=== PATIENT | female | born 2000 | race Caucasian/White ===

== ENCOUNTER 2018-03-18 17:29 | Emergency (ER) | payer OTHER ==
--- NOTE | 2018-03-18 18:05 | EDPHY ---
H & P Stated Complaint: cramping/iud Time Seen by Provider: 03/18/18 17:47 HPI/ROS: CHIEF COMPLAINT: Severe pelvic cramping HISTORY OF PRESENT ILLNESS: 17-year-old female presents with severe pelvic cramping. IUD placed 2 years ago, usually does not have menstrual periods. However 1 week ago she developed breast tenderness, associated with pelvic cramping and vaginal bleeding. Vaginal bleeding has stopped, but continues to have severe pelvic cramping. Associated with nausea. REVIEW OF SYSTEMS: complete 10 point ROS reviewed and is negative except for the noted elements in the HPI - Personal History LMP (Females 10-55): IUD In Place - Medical/Surgical History Hx Asthma: No Hx Chronic Respiratory Disease: No Hx Diabetes: No Hx Cardiac Disease: No Hx Renal Disease: No Hx Cirrhosis: No Hx Alcoholism: No Hx HIV/AIDS: No Hx Splenectomy or Spleen Trauma: No Other PMH: denies - Social History Smoking Status: Never smoked - Physical Exam Exam: General Appearance: Alert, pleasant Eyes: Pupils equal and round, no conjunctival pallor ENT, Mouth: Mucous membranes moist Neck: Normal inspection Respiratory: Lungs are clear to auscultation Cardiovascular: Regular rate and rhythm Gastrointestinal: Abdomen is soft, mild suprapubic tenderness Neurological: A&O, nonfocal, normal gait Skin: Warm and dry, no rash Extremities: Normal inspection Psychiatric: Mood and affect normal Constitutional: Initial Vital Signs Temperature (C) 36.8 C 03/18/18 17:32 Heart Rate 73 03/18/18 17:32 Respiratory Rate 18 03/18/18 17:32 Blood Pressure 111/88 H 03/18/18 17:32 O2 Sat (%) 100 03/18/18 17:32 O2 Delivery Mode Room Air Allergies/Adverse Reactions: doxycycline Allergy (Verified 03/18/18 17:32) Home Medications: Medication Instructions Recorded Spironolactone 03/18/18 Medical Decision Making - Diagnostics Imaging Results: Pelvic/Renal Ultrasound 03/18/18 18:03 Impression: Probable partially ruptured right ovarian cyst. Findings and recommendations discussed with Dr. Clemencia Wetzel at 7:50 PM hour, 03/18/2018. Final report concurs with initial preliminary interpretation. Imaging: Discussed imaging studies w/ call centre supervisor Radiologist ED Course/Re-evaluation: Pelvic pain in 17yo female. stat preg to r/o ectopic is negative. Pelvic sono reveals ruptured ovarian cyst. Leukocytosis noted, likely secondary to pain/ ovarian cyst, doubt alternative etiology of sx. Abd exam remains benign. Safe/ stable for d/c. Differential Diagnosis: Differential diagnosis includes though it is not limited to ectopic , ovarian cyst, ovarian torsion, PID, UTI, appendicitis. - Data Points Laboratory Results: Laboratory Results 03/18/18 18:55 Point of Care Test Results: Urine HCG Results Negative Departure - Departure Disposition: Home, Routine, Self-Care Clinical Impression: Ovarian cyst Qualifiers: Laterality: right Qualified Code(s): N83.201 - Unspecified ovarian cyst, right side Condition: Good Instructions: Ruptured Ovarian Cyst (ED) Additional Instructions: Ibuprofen 600 mg 3 times daily while the pain persists. Referrals: Cierra Almendarez MD [Medical Doctor] - As per Instructions (Call to make an appointment.)
[2018-03-18 19:05] LABS: PLATELET COUNT 282 10^3/uL (150-400)
[2018-03-18 20:52] VITALS: BP 116/75
== END 2018-03-18 20:52 | disposition home or self-care (01) ==
DX: N83.201 Unspecified ovarian cyst, right side (principal)